=== PATIENT | female | born 1990 | race Caucasian/White ===

== ENCOUNTER 2022-10-14 05:49 | Inpatient (IN) | payer OTHER ==
[2022-10-14 05:55] VITALS: BMI 31.0
[2022-10-14] MEDS ORDERED: Famotidine/PF 20 mg/2ml Vial SLOW IVP PRN (06:02)
[2022-10-14] MEDS ORDERED: Ondansetron PF 4 MG/2 ML Vial IVP PRN ×2 (06:02→07:09)
[2022-10-14] MEDS ORDERED: hydrALAZINE 20 MG/ML VIAL SLOW IVP PRN ×2 (06:02→12:11)
[2022-10-14] MEDS ORDERED: Bicitra 30 ML UDCUP PO PRN (06:02)
[2022-10-14] MEDS ORDERED: Acetaminophen 500 MG TAB PO PRN (06:02)
[2022-10-14] MEDS ORDERED: Promethazine HCl 25 MG/ML VIAL IM PRN ×2 (06:02→07:09)
[2022-10-14] MEDS ORDERED: NS w/ Oxytocin 30 units 500 ML IV SCH (06:15)
[2022-10-14] MEDS ORDERED: CEFAZOLIN 2 GM in Sodium Chloride 0.9% 100 ML IVPB SCH (06:15)
[2022-10-14] MEDS ORDERED: Lactated Ringer's 1,000 ML IV SCH (06:15)
[2022-10-14] MEDS ORDERED: Erythromycin Base 0.5% Oint 1 GM TUBE ONE (06:50)
[2022-10-14] MEDS ORDERED: Phytonadione Neonatal 1 MG/0.5 ML AMP ONE (06:50)
[2022-10-14] MEDS ORDERED: Morphine PF 10 MG/10 ML VIAL ONE (06:51)
[2022-10-14] MEDS ORDERED: PHENYLEPHRINE-NS 100 MCG/ML 10 ML SYRINGE ONE (06:52)
[2022-10-14] MEDS ORDERED: Dexamethasone 4 mg/ml Vial ONE (06:52)
[2022-10-14] MEDS ORDERED: Oxytocin 10 UNITS/ML VIAL ONE (06:52)
[2022-10-14] MEDS ORDERED: Glycopyrrolate 0.2 MG/ML 5 ML SYRINGE ONE (06:52)
[2022-10-14] MEDS ORDERED: Ketorolac Tromethamine 30 MG/ML VIAL ONE (06:52)
[2022-10-14] MEDS ORDERED: Ondansetron PF 4 MG/2 ML Vial ONE (06:52)
[2022-10-14] MEDS ORDERED: ePHEDrine Sulfate 50 MG/10 ML VIAL ONE (06:52)
[2022-10-14] MEDS ORDERED: Phenylephrine 40 MG/NS 250 ML 250 ML ONE (06:52)
[2022-10-14 07:05] LABS: Hemoglobin 11.5 g/dL (12.0-15.5); Mean Corpuscular HGB CONC 34.7 g/dL (32.0-36.0); Mean Corpuscular Hemoglobin 32.3 pg (27.0-33.0); Platelet Count 113 10x3/uL (130-400); RBC Distribution Width 13.5 % (11.5-14.5); Red Blood Cell (RBC) Count 3.56 10x6/uL (3.90-5.03); White Blood Cell (WBC) Count 9.9 10x3/uL (3.5-10.5)
[2022-10-14 07:06] LABS: Mean Platelet Volume 12.3 fl (7.4-10.4)
[2022-10-14] MEDS ORDERED: Moisturizing Cream (Eucerin) 113 GM JAR TOP PRN (07:09)
[2022-10-14] MEDS ORDERED: Naloxone HCl 0.4 mg/ml Vial IVP PRN ×2 (07:09)
[2022-10-14] MEDS ORDERED: Naloxone HCl 0.4 mg/ml Vial IV PRN (07:09)
[2022-10-14] MEDS ORDERED: Fentanyl 100 MCG/2 ML VIAL SLOW IVP PRN (07:09)
[2022-10-14] MEDS ORDERED: Meperidine HCl/PF 25 MG/ML VIAL SLOW IVP PRN (07:09)
[2022-10-14] MEDS ORDERED: diphenhydrAMINE 50 MG/ML VIAL IVP PRN (07:09)
[2022-10-14] MEDS ORDERED: Ondansetron HCl/PF 4 MG/2 ML Vial IVP PRN (07:09)
[2022-10-14] MEDS ORDERED: Promethazine HCl 25 MG SUPP PR PRN (07:09)
[2022-10-14] MEDS ORDERED: Ketorolac Tromethamine 30 MG/ML VIAL IVP SCH (07:15)
[2022-10-14] MEDS ORDERED: Communication Order-Pharmacy FS SCH (07:15)
[2022-10-14 07:37] LABS: HBSAg Index 0.21 S/CO (0-0.99); Hep B Surf Ag - L&D Non-Reactive S/CO (NonReactive)
[2022-10-14 07:48] LABS: Syphilis Antibody Nonreactive (Nonreactive); Syphilis Antibody Index 0.05 S/CO (<1.00 Non-Reactive)
[2022-10-14] MEDS ORDERED: Simethicone Chewable 80 MG TAB PO PRN (12:11)
[2022-10-14] MEDS ORDERED: Lanolin Ointment 7 GM TUBE TOP PRN (12:11)
[2022-10-14] MEDS ORDERED: Bisacodyl 10 MG SUPP PR PRN (12:11)
[2022-10-14] MEDS ORDERED: Boostrix 0.5 ML (Tdap) VIAL (>/=7 yrs of age) IM ONE (12:11)
[2022-10-14] MEDS: Ketorolac Tromethamine 30 MG/ML VIAL IVP PRN ×2 (13:55→20:29)
[2022-10-14] MEDS: Docusate 100 MG CAP PO SCH (20:29)
[2022-10-14] MEDS: Ferrous Sulfate 325 MG TAB PO SCH (20:51)
[2022-10-15] MEDS: Ketorolac Tromethamine 30 MG/ML VIAL IVP PRN (02:05)
[2022-10-15 04:07] LABS: Hemoglobin 9.2 g/dL (12.0-15.5); Mean Corpuscular HGB CONC 33.7 g/dL (32.0-36.0); Mean Corpuscular Hemoglobin 32.6 pg (27.0-33.0); Mean Corpuscular Volume 96.8 fl (81.6-98.3); Mean Platelet Volume 12.7 fl (7.4-10.4); Platelet Count 99 10x3/uL (150-450); RBC Distribution Width 13.9 % (11.5-14.5); Red Blood Cell (RBC) Count 2.82 10x6/uL (3.90-5.03); White Blood Cell (WBC) Count 11.1 10x3/uL (3.5-10.5)
[2022-10-15] MEDS: Bupropion 150 MG XL TAB PO SCH (08:06)
[2022-10-15] MEDS: Docusate 100 MG CAP PO SCH ×2 (08:06→21:04)
[2022-10-15] MEDS: Prenatal Vitamin 1 TAB PO SCH (08:06)
[2022-10-15] MEDS: Ferrous Sulfate 325 MG TAB PO SCH ×2 (08:06→21:04)
[2022-10-15] MEDS: HYDROcodone/Acetaminophen 5/325 mg Tablet PO PRN ×4 (08:11→21:04)
[2022-10-15] MEDS: Ibuprofen 800 MG TAB PO SCH ×2 (10:01→17:58)
[2022-10-15] MEDS ORDERED: Acetaminophen 500 MG TAB PO PRN (19:39)
[2022-10-16] MEDS: Ibuprofen 800 MG TAB PO SCH ×2 (01:25→09:55)
[2022-10-16] MEDS: HYDROcodone/Acetaminophen 5/325 mg Tablet PO PRN ×2 (04:22→08:17)
[2022-10-16 05:29] LABS: Hemoglobin 8.9 g/dL (12.0-15.5); Mean Corpuscular Hemoglobin 32.2 pg (27.0-33.0); Mean Corpuscular Volume 97.8 fl (81.6-98.3); Mean Platelet Volume 12.5 fl (7.4-10.4); Platelet Count 93 10x3/uL (150-450); Red Blood Cell (RBC) Count 2.76 10x6/uL (3.90-5.03); White Blood Cell (WBC) Count 7.3 10x3/uL (3.5-10.5)
[2022-10-16] MEDS: Docusate 100 MG CAP PO SCH (08:16)
[2022-10-16] MEDS: Ferrous Sulfate 325 MG TAB PO SCH (08:16)
[2022-10-16] MEDS: Prenatal Vitamin 1 TAB PO SCH (08:16)
[2022-10-16] MEDS: Bupropion 150 MG XL TAB PO SCH (08:16)
[2022-10-16] MEDS ORDERED: Acetaminophen 500 MG TAB PO SCH (09:00)
[2022-10-16 09:06] VITALS: BP 142/90; TEMP 98.7
== END 2022-10-16 13:00 | disposition home or self-care (01) | DRG 784 ==
LOC: CSHLD 05:49 → CSHPP 11:20
PROVIDERS: ADMIT Family Medicine; ATTEND Family Medicine
PROC: 10D00Z1 Extraction of Products of Conception, Low, Open Approach (ICD-10-PCS; principal; 2022-10-14)
PROC: 0UT70ZZ Resection of Bilateral Fallopian Tubes, Open Approach (ICD-10-PCS; 2022-10-14)
DX: O32.1XX0 Maternal care for breech presentation, not applicable or unspecified (principal); D62 Acute posthemorrhagic anemia; Z3A.37 37 weeks gestation of pregnancy; Z37.0 Single live birth; O13.4 Gestational [pregnancy-induced] hypertension without significant proteinuria, complicating childbirth; F17.210 Nicotine dependence, cigarettes, uncomplicated; O99.334 Smoking (tobacco) complicating childbirth; K59.00 Constipation, unspecified; O99.62 Diseases of the digestive system complicating childbirth; Z79.82 Long term (current) use of aspirin; Z79.899 Other long term (current) drug therapy; Z88.8 Allergy status to other drugs, medicaments and biological substances; Z88.1 Allergy status to other antibiotic agents; D69.6 Thrombocytopenia, unspecified; O99.02 Anemia complicating childbirth
CPT/HCPCS: 36415; 51702; 85027; 86780; 86850; 86900; 86901; 87340; 88302; J1100; J1200; J1885; J2274; J2405; J2590

== ENCOUNTER 2022-10-22 13:31 | Inpatient (IN) | payer OTHER ==
[2022-10-22] MEDS ORDERED: hydrALAZINE 20 MG/ML VIAL SLOW IVP PRN (15:14)
[2022-10-22 15:38] LABS: Creatinine, Urine 31.23 mg/dL (47-110); Protein, Urine Random Quant Less than 10 mg/dL (1-14)
[2022-10-22 16:02] LABS: #Eosinphils 0.1 10x3/uL (0.0-0.5); #Monocytes 0.4 10x3/uL (0.0-1.1); #Neutrophils 4.6 10x3/uL (1.5-8.4); %Basophils 0.6 % (0.0-2.0); %Eosinophils 1.7 % (0.0-6.0); %Lymphocytes 27.2 % (18.0-47.0); %Monocytes 5.1 % (0.0-10.0); %Neutrophils 65.3 % (40.0-75.0); Hematocrit 29.2 % (34.9-44.5); Hemoglobin 9.8 g/dL (12.0-15.5); Mean Corpuscular HGB CONC 33.6 g/dL (32.0-36.0); Mean Corpuscular Hemoglobin 32.5 pg (27.0-33.0); Mean Corpuscular Volume 96.7 fl (81.6-98.3); Mean Platelet Volume 11.6 fl (7.4-10.4); Platelet Count 168 10x3/uL (150-450); RBC Distribution Width 13.2 % (11.5-14.5); Red Blood Cell (RBC) Count 3.02 10x6/uL (3.90-5.03)
[2022-10-22 16:14] LABS: ALT (SGPT) 9 U/L (8-55); AST (SGOT) 11 U/L (5-34); Albumin 3.3 g/dL (3.5-5.0); Alkaline Phosphatase 79 U/L (40-110); Anion Gap 13 mmol/L (10-20); BUN (Urea Nitrogen) 8 mg/dL (7.0-18.7); Bilirubin, Total 0.3 mg/dL (0.2-1.2); Calc. Creatinine Clearance 0 mL/min (70-130); Calcium 8.3 mg/dL (7.8-10.44); Carbon Dioxide 25 mmol/L (22-29); Chloride 107 mmol/L (98-107); Estimated GFR 114; Globulin 3.1 g/dL (2.4-3.5); Glucose 91 mg/dL (70-105); Protein, Total 6.4 g/dL (6.0-8.3); Sodium 141 mmol/L (136-145)
[2022-10-22] MEDS ORDERED: Promethazine HCl 25 MG/ML VIAL IM PRN (17:54)
[2022-10-22] MEDS ORDERED: Ondansetron PF 4 MG/2 ML Vial IVP PRN (17:54)
[2022-10-22] MEDS ORDERED: Lorazepam 2 MG/ML VIAL SLOW IVP PRN (18:05)
[2022-10-22] MEDS ORDERED: Calcium Gluc 4.6 MEQ/10 ML (100 MG/ML) SLOW IVP PRN (18:05)
[2022-10-22] MEDS ORDERED: Magnesium Sulfate 20 gm/500 ml 20 GM/500 ML BAG IVPB SCH (18:15)
[2022-10-22] MEDS ORDERED: Magnesium Sulfate 20 gm/500 ml 20 GM/500 ML BAG ONE (18:33)
[2022-10-22] MEDS ORDERED: HYDROcodone/Acetaminophen 5/325 mg Tablet PO PRN (19:18)
[2022-10-22] MEDS ORDERED: NIFEdipine XL 30 MG TAB PO SCH (20:00)
[2022-10-22] MEDS: Ibuprofen 600 MG TAB PO PRN (20:08)
[2022-10-22 22:37] VITALS: BMI 29.7
[2022-10-23 04:20] LABS: ALT (SGPT) 9 U/L (8-55); AST (SGOT) 11 U/L (5-34); Albumin 3.4 g/dL (3.5-5.0); Alkaline Phosphatase 83 U/L (40-110); Anion Gap 15 mmol/L (10-20); BUN (Urea Nitrogen) 7 mg/dL (7.0-18.7); Bilirubin, Total 0.2 mg/dL (0.2-1.2); Calc. Creatinine Clearance 145 mL/min (70-130); Calcium 7.9 mg/dL (7.8-10.44); Carbon Dioxide 26 mmol/L (22-29); Chloride 105 mmol/L (98-107); Estimated GFR 107; Globulin 3.2 g/dL (2.4-3.5); Glucose 90 mg/dL (70-105); Potassium 3.8 mmol/L (3.5-5.1); Protein, Total 6.6 g/dL (6.0-8.3); Sodium 142 mmol/L (136-145)
[2022-10-23 04:26] LABS: Mean Corpuscular HGB CONC 33.3 g/dL (32.0-36.0); Mean Corpuscular Hemoglobin 32.5 pg (27.0-33.0); Mean Corpuscular Volume 97.6 fl (81.6-98.3); Mean Platelet Volume 11.6 fl (7.4-10.4); Platelet Count 209 10x3/uL (150-450); RBC Distribution Width 13.4 % (11.5-14.5); Red Blood Cell (RBC) Count 3.38 10x6/uL (3.90-5.03)
[2022-10-23] MEDS: Ibuprofen 600 MG TAB PO PRN (06:14)
[2022-10-23] MEDS ORDERED: NIFEdipine XL 30 MG TAB PO SCH ×2 (09:00)
[2022-10-23] MEDS ORDERED: Bupropion 150 MG XL TAB PO SCH (10:00)
[2022-10-23] MEDS ORDERED: Labetalol HCl 100 MG TAB PO SCH ×2 (11:35→21:00)
[2022-10-23] MEDS ORDERED: hydrOXYzine 25 MG TAB PO SCH (11:45)
[2022-10-23 17:33] LABS: #Eosinphils 0.1 10x3/uL (0.0-0.5); #Monocytes 0.4 10x3/uL (0.0-1.1); #Neutrophils 6.8 10x3/uL (1.5-8.4); %Basophils 0.3 % (0.0-2.0); %Eosinophils 0.9 % (0.0-6.0); %Monocytes 4.3 % (0.0-10.0); %Neutrophils 76.3 % (40.0-75.0); Hematocrit 35.2 % (34.9-44.5); Hemoglobin 11.7 g/dL (12.0-15.5); Mean Corpuscular HGB CONC 33.2 g/dL (32.0-36.0); Mean Corpuscular Hemoglobin 32.5 pg (27.0-33.0); Mean Corpuscular Volume 97.8 fl (81.6-98.3); Mean Platelet Volume 11.2 fl (7.4-10.4); Platelet Count 213 10x3/uL (150-450); RBC Distribution Width 13.2 % (11.5-14.5); White Blood Cell (WBC) Count 8.9 10x3/uL (3.5-10.5)
[2022-10-23 17:49] LABS: ALT (SGPT) 12 U/L (8-55); AST (SGOT) 13 U/L (5-34); Albumin 3.6 g/dL (3.5-5.0); Alkaline Phosphatase 96 U/L (40-110); Anion Gap 16 mmol/L (10-20); BUN (Urea Nitrogen) 8 mg/dL (7.0-18.7); Bilirubin, Total 0.3 mg/dL (0.2-1.2); Calc. Creatinine Clearance 136 mL/min (70-130); Calcium 8.5 mg/dL (7.8-10.44); Carbon Dioxide 22 mmol/L (22-29); Chloride 106 mmol/L (98-107); Estimated GFR 99; Globulin 3.6 g/dL (2.4-3.5); Glucose 91 mg/dL (70-105); Potassium 4.1 mmol/L (3.5-5.1); Protein, Total 7.2 g/dL (6.0-8.3); Sodium 140 mmol/L (136-145)
[2022-10-23 19:39] VITALS: BP 139/85
[2022-10-24] MEDS ORDERED: Bupropion 150 MG XL TAB PO SCH (09:00)
== END 2022-10-23 19:45 | disposition home or self-care (01) | DRG 776 ==
LOC: CSHLD/OP 13:31 → CSHLD 17:54
PROVIDERS: ADMIT Obstetrics & Gynecology; ATTEND Obstetrics & Gynecology
DX: O13.5 Gestational [pregnancy-induced] hypertension without significant proteinuria, complicating the puerperium (principal); F17.210 Nicotine dependence, cigarettes, uncomplicated; O99.335 Smoking (tobacco) complicating the puerperium; Z79.899 Other long term (current) drug therapy; Z88.8 Allergy status to other drugs, medicaments and biological substances; Z88.1 Allergy status to other antibiotic agents
CPT/HCPCS: 36415; 80053; 82570; 84156; 85025; 85027; J0360; J3475